=== PATIENT | female | born 1980 | race Caucasian/White ===

== ENCOUNTER 2020-02-20 19:36 | Emergency (ER) | payer OTHER ==
[~2020-02-20] VITALS: Ht 162.6 cm; Wt 81.2 kg
--- OUTSIDE RECORDS SUMMARY | 2020-02-20 20:30 | XMS ---
PreManage Notification: ASHLEY HEARD Security Vehicle Washer Events No recent Security Events currently on file CRITERIA MET - [facility] - 2 Visits in 30 Days CARE PROVIDERS CANELO ROWELL Physician Current PHONE: [phone] Anselmo has no Care Guidelines for this patient. E.D. VISIT COUNT (12 MO.) [address] TOTAL 3 NOTE: Visits indicate total known visits. ED/UCC VISIT TRACKING (12 MO.) 02/20/2020 19:38 [facility] [place] TYPE: Emergency COMPLAINT: - LOW BACK PAIN/ NO INJ 02/01/2020 21:01 [facility] TYPE: Emergency COMPLAINT: - ABD PAIN - SHORTNESS OF BREATH - UNSPECIFIED ABDOMINAL PAIN - COUGH DIAGNOSES: 0. Unspecified abdominal pain 1. Unspecified abdominal pain 5. Nausea 6. Other psychoactive substance abuse, uncomplicated 7. Nicotine dependence, cigarettes, uncomplicated 10/06/2019 21:28 [facility] [place] TYPE: Emergency DIAGNOSES: - +screening, TOOTH ABCESS, DIZZY, FEVER INPATIENT VISIT TRACKING (12 MO.) No inpatient visits to display in this time frame [email or web address]
== END 2020-02-20 21:38 | disposition home or self-care (01) ==
LOC: ED 19:36
DX: M54.5 Low back pain (principal); F17.200 Nicotine dependence, unspecified, uncomplicated
CPT/HCPCS: 81001; 84702; 84703; 99283